=== PATIENT | male | born 1990 | race Hispanic/Latino ===

== ENCOUNTER 2024-05-31 11:28 | Emergency (ER) | payer SELFPAY ==
[2024-05-31] MEDS ORDERED: Lidocaine 1% w/Epinephrine 1:200K 30 ML VIAL ONE (11:36)
[2024-05-31] MEDS ORDERED: Boostrix 0.5 ML (Tdap) VIAL (>/=7 yrs of age) ONE (11:54)
[2024-05-31] MEDS ORDERED: CEFAZOLIN 1 GM VIAL ONE (11:54)
== END 2024-05-31 12:30 | disposition home or self-care (01) ==
LOC: CSHERS 11:28
DX: S71.111A Laceration without foreign body, right thigh, initial encounter (principal); W29.3XXA Contact with powered garden and outdoor hand tools and machinery, initial encounter; Y93.89 Activity, other specified; Y92.89 Other specified places as the place of occurrence of the external cause; Z55.6 Problems related to health literacy; Z75.3 Unavailability and inaccessibility of health-care facilities
CPT/HCPCS: 12002; 90715; 99282; J0690

== ENCOUNTER 2024-06-07 13:18 | Emergency (ER) | payer SELFPAY | END 2024-06-07 14:17 | disposition home or self-care (01) | LOC: CSHERS 13:18 | DX: S71.111D Laceration without foreign body, right thigh, subsequent encounter (principal) ==